=== PATIENT | female | born 1960 | race Caucasian/White ===

== ENCOUNTER 2024-01-06 07:45 | Inpatient (IN) | payer OTHER ==
[~2024-01-06] VITALS: Ht 162.6 cm; Wt 65.8 kg
[2024-01-06 08:27] LABS: BASOPHILS # (AUTO) 0.1 K/uL (0.0-0.2); BASOPHILS % (AUTO) 0.8 % (0.0-2.0); EOSINOPHILS # (AUTO) 0.2 K/uL (0.0-0.7); EOSINOPHILS % (AUTO) 2.7 % (0.0-6.0); HEMATOCRIT 28 % (33-45); HEMOGLOBIN 9.3 g/dL (11.5-14.8); LYMPHOCYTES # (AUTO) 1.1 K/uL (0.8-4.8); LYMPHOCYTES % (AUTO) 12.5 % (20.0-44.0); MEAN CORPUSCULAR HEMOGLOBIN 30 PG (26.0-33.0); MEAN CORPUSCULAR HGB CONC 33 g/dl (31.0-36.0); MEAN CORPUSCULAR VOLUME 89 fL (82-100); MONOCYTES # (AUTO) 0.7 K/uL (0.1-1.30); MONOCYTES % (AUTO) 8.1 % (2.0-12.0); NEUTROPHILS # (AUTO) 6.6 K/uL (1.8-8.9); NEUTROPHILS % (AUTO) 75.9 % (43.0-81.0); PLATELET COUNT (AUTO) 261 K/uL (150-450); RED BLOOD CELL COUNT(AUTO) 3.17 MIL/uL (4.0-5.2); RED CELL DISTRIBUTION WIDTH 15.7 % (11.5-15.0); WHITE BLOOD COUNT (AUTO) 8.6 K/uL (4.3-11.0)
[2024-01-06 08:34] LABS: CALCIUM, SERUM 10.4 mg/dL (8.5-10.1); CARBON DIOXIDE 22 mmol/L (21-32); CHLORIDE 106 mmol/L (98-107); CREATININE 4.3 mg/dL (0.6-1.3); GLUCOSE 159 mg/dL (74-106); POTASSIUM 5.2 mmol/L (3.5-5.1); SODIUM SERUM 140 mmol/L (136-145); UREA NITROGEN, BLOOD 65 mg/dL (7-18)
[2024-01-06 08:40] LABS: ALANINE AMINOTRANSFERASE 25 U/L (12-78); ALBUMIN 3.6 g/dL (3.4-5.0); ALCOHOL, BLOOD 3 mg/dL (0-10); ALKALINE PHOSPHATASE 152 U/L (46-116); ASPARTATE AMINOTRANSFERASE 13 U/L (15-37); BILIRUBIN,DIRECT 0.1 mg/dL (0.0-0.2); BILIRUBIN,TOTAL 0.3 mg/dL (0.2-1.0); TOTAL PROTEIN, SERUM 8.8 g/dL (6.4-8.2)
[2024-01-06 08:41] LABS: ACETAMINOPHEN <10 ug/ml (10-30); SALICYLATE 0.7 mg/dL (2.8-20.0)
[2024-01-06] MEDS: IV NS 0.9% 1,000 ML BAG IV ONE (09:00)
[2024-01-06] MEDS ORDERED: OLANZAPINE 5 MG TABLET ONE (09:01)
[2024-01-06] MEDS: OLANZAPINE ZYDIS 5 MG TAB.RAPDIS PO ONE (09:03)
[2024-01-06] MEDS ORDERED: OLAN5TAB3 PO (09:23)
[2024-01-06] MEDS ORDERED: HYDR-4076 PO (09:23)
[2024-01-06 10:27] LABS: APPEARANCE,URINE SLIGHTLY CLOUDY (CLEAR); BILIRUBIN,URINE NEGATIVE (NEGATIVE); BLOOD, URINE 1+ Ery/uL (NEGATIVE); COLOR,URINE YELLOW (YELLOW); KETONES,URINE NEGATIVE (NEGATIVE); LEUKOCYTE ESTERASE ,URINE TRACE (NEGATIVE); NITRITE, URINE NEGATIVE (NEGATIVE); PH,URINE 6.5 (5.0-8.0); PROTEIN,URINE 3+ mg/dl (NEGATIVE); UGLUCOSE 1+ mg/dL (NEGATIVE); UROBILINOGEN,URINE 0.2 EU/dL (0.2)
[2024-01-06 10:28] LABS: ADD URINE CULTURE YES; BACTERIA,URINE Rare /HPF (None Seen); SQUAMOUS EPITHELIAL CELL,UR Few /HPF (None Seen)
[2024-01-06 10:33] LABS: AMPHETAMINE, URINE NEGATIVE (NEGATIVE); BARBITURATE, URINE NEGATIVE (NEGATIVE); BENZODIAZEPINE, URINE NEGATIVE (NEGATIVE); CANNABINOID, URINE NEGATIVE (NEGATIVE); COCCAINE, URINE NEGATIVE (NEGATIVE); OPIATE, URINE NEGATIVE (NEGATIVE); PHENCYCLIDINE SCREEN,URINE NEGATIVE (NEGATIVE)
[2024-01-06] MEDS ORDERED: MAG HYDROX/AL HYDROX/SIMETH 30 ML UDC PO PRN (12:00)
[2024-01-06] MEDS ORDERED: IV NS 0.9% 1,000 ML IV PRN (12:00)
[2024-01-06] MEDS ORDERED: ONDANSETRON HCL/PF 4 MG/2 ML VIAL IVP PRN (12:00)
[2024-01-06] MEDS ORDERED: ACETAMINOPHEN 325 MG TABLET PO PRN (12:00)
[2024-01-06] MEDS ORDERED: Z GUARD REMEDY 4 OZ OINT TP PRN (12:00)
[2024-01-06] MEDS: SODIUM POLYSTYRENE SULFONATE 15 G/60 ML BOTTLE PO ONE (12:00)
[2024-01-06] MEDS ORDERED: MAGNESIUM HYDROXIDE 30 ML UDC PO PRN (12:00)
[2024-01-06] MEDS: OLANZAPINE 5 MG TABLET PO SCH (16:21)
[2024-01-07 08:00] VITALS: BP 220/100; TEMP 98.6; O2SAT 98
[2024-01-07] MEDS: hydrALAZINE HCL 25 MG TABLET PO SCH (08:14)
[2024-01-07] MEDS ORDERED: hydrALAZINE HCL IV 20 MG VIAL IV PRN (09:00)
[2024-01-07 20:00] VITALS: BP 201/93; TEMP 97.9; O2SAT 98
[2024-01-07] MEDS: ZOLPIDEM TARTRATE 5 MG TABLET PO PRN (23:58)
[2024-01-08] MEDS ORDERED: LORAZEPAM INJ 2 MG/ML VIAL IM STA (07:14)
[2024-01-08] MEDS: OLANZAPINE 10 MG VIAL IM STA (07:53)
[2024-01-08] MEDS ORDERED: NIFE-35 PO (09:17)
[2024-01-08] MEDS: NIFEdipine XL (30MG) 30 MG TAB PO SCH (09:30)
[2024-01-08] MEDS ORDERED: HALOPERIDOL 5 MG TABLET PO PRN (11:00)
[2024-01-08] MEDS: HALOPERIDOL LACTATE INJ 5 MG/ML VIAL IM PRN (13:14)
[2024-01-08] MEDS: OLANZAPINE 10 MG TABLET PO SCH (17:11)
[2024-01-09 11:59] VITALS: BP 123/62; TEMP 97.9; O2SAT 100
[2024-01-09 15:04] LABS: BASOPHILS % (AUTO) 0.7 % (0.0-2.0); EOSINOPHILS # (AUTO) 0.2 K/uL (0.0-0.7); EOSINOPHILS % (AUTO) 3.7 % (0.0-6.0); HEMATOCRIT 23 % (33-45); HEMOGLOBIN 7.5 g/dL (11.5-14.8); LYMPHOCYTES # (AUTO) 1.6 K/uL (0.8-4.8); LYMPHOCYTES % (AUTO) 30.4 % (20.0-44.0); MEAN CORPUSCULAR HEMOGLOBIN 30 PG (26.0-33.0); MEAN CORPUSCULAR HGB CONC 33 g/dl (31.0-36.0); MEAN CORPUSCULAR VOLUME 89 fL (82-100); MONOCYTES # (AUTO) 0.6 K/uL (0.1-1.30); MONOCYTES % (AUTO) 11.2 % (2.0-12.0); NEUTROPHILS # (AUTO) 2.8 K/uL (1.8-8.9); PLATELET COUNT (AUTO) 199 K/uL (150-450); RED BLOOD CELL COUNT(AUTO) 2.53 MIL/uL (4.0-5.2); RED CELL DISTRIBUTION WIDTH 16.1 % (11.5-15.0); WHITE BLOOD COUNT (AUTO) 5.2 K/uL (4.3-11.0)
[2024-01-09 15:43] LABS: ALBUMIN 2.7 g/dL (3.4-5.0); BILIRUBIN,TOTAL 0.2 mg/dL (0.2-1.0); CALCIUM, SERUM 8.5 mg/dL (8.5-10.1); CREATININE 5.2 mg/dL (0.6-1.3); MAGNESIUM 2.2 mg/dL (1.8-2.4); PHOSPHORUS 4.5 mg/dL (2.5-4.9); POTASSIUM 4.3 mmol/L (3.5-5.1); TOTAL PROTEIN, SERUM 7.1 g/dL (6.4-8.2)
[2024-01-09] MEDS: RISPERIDONE 1 MG TAB.RAPDIS PO SCH (17:00)
[2024-01-09 22:00] VITALS: BP 136/65; TEMP 98; O2SAT 98
[2024-01-10 06:00] VITALS: BP 141/82; TEMP 97.2; O2SAT 95
[2024-01-10 08:00] VITALS: BP 123/54; TEMP 98.1; O2SAT 100
[2024-01-10 12:58] LABS: ALBUMIN 2.8 g/dL (3.4-5.0); BILIRUBIN,TOTAL 0.2 mg/dL (0.2-1.0); CREATININE 5.2 mg/dL (0.6-1.3); MAGNESIUM 2.2 mg/dL (1.8-2.4); PHOSPHORUS 4.8 mg/dL (2.5-4.9); TOTAL PROTEIN, SERUM 7.2 g/dL (6.4-8.2)
[2024-01-10 13:35] LABS: BASOPHILS % (AUTO) 0.5 % (0.0-2.0); EOSINOPHILS # (AUTO) 0.2 K/uL (0.0-0.7); EOSINOPHILS % (AUTO) 4.6 % (0.0-6.0); HEMATOCRIT 23 % (33-45); LYMPHOCYTES % (AUTO) 36.7 % (20.0-44.0); MEAN CORPUSCULAR HEMOGLOBIN 31 PG (26.0-33.0); MEAN CORPUSCULAR HGB CONC 35 g/dl (31.0-36.0); MEAN CORPUSCULAR VOLUME 89 fL (82-100); MONOCYTES # (AUTO) 0.6 K/uL (0.1-1.30); MONOCYTES % (AUTO) 10.9 % (2.0-12.0); NEUTROPHILS # (AUTO) 2.5 K/uL (1.8-8.9); NEUTROPHILS % (AUTO) 47.3 % (43.0-81.0); PLATELET COUNT (AUTO) 200 K/uL (150-450); RED BLOOD CELL COUNT(AUTO) 2.61 MIL/uL (4.0-5.2); RED CELL DISTRIBUTION WIDTH 15.8 % (11.5-15.0); WHITE BLOOD COUNT (AUTO) 5.4 K/uL (4.3-11.0)
[2024-01-10 16:00] VITALS: BP 154/55; TEMP 98.1; O2SAT 100
[2024-01-10] MEDS ORDERED: RISPERIDONE 0.25 MG TAB.RAPDIS PO SCH (18:00)
[2024-01-10] MEDS: risperiDONE-M 0.5 MG TAB.RAPDIS PO SCH (18:30)
[2024-01-10 20:00] VITALS: BP 157/62; TEMP 98.6; O2SAT 97
[2024-01-10 22:00] VITALS: BP 157/62; TEMP 98.6; O2SAT 97
[2024-01-11 06:33] VITALS: BP 157/62; TEMP 98.6; O2SAT 97
[2024-01-11 08:00] VITALS: BP 176/79; TEMP 98.1; O2SAT 100
[2024-01-11 08:06] LABS: COMPLEMENT C3, SERUM 104 mg/dL (82-167); COMPLEMENT C4, SERUM 21 mg/dL (12-38)
[2024-01-11 10:07] LABS: *ANA ANTI-CENTROMERE B AB <0.2 AI (0.0-0.9); *ANA ANTI-DNA(DS) AB, QN <1 IU/mL (0-9); *ANA ANTI-JO-1 <0.2 AI (0.0-0.9); *ANA ANTICHROMATIN ANTIBODY <0.2 AI (0.0-0.9); *ANA RNP ANTIBODIES <0.2 AI (0.0-0.9); *ANA SJOGREN'S ANTI-SS-A <0.2 AI (0.0-0.9); *ANA SJOGREN'S ANTI-SS-B <0.2 AI (0.0-0.9); *ANAANTI-SCLERODERMA-70 AB <0.2 AI (0.0-0.9); *ANASMITH AB <0.2 AI (0.0-0.9)
[2024-01-11 14:10] LABS: HEPATITIS B SURFACE AB Non Reactive (.)
[2024-01-11 16:00] VITALS: BP 176/69; TEMP 99; O2SAT 99
[2024-01-11 20:00] VITALS: BP 158/88; TEMP 98.1; O2SAT 100
[2024-01-13] MEDS: HALOPERIDOL LACTATE INJ 5 MG/ML VIAL IM PRN (15:20)
[2024-01-14 13:36] VITALS: BP 169/75
[2024-01-14] MEDS ORDERED: hydrALAZINE HCL 25 MG TABLET PO ONE (14:00)
[2024-01-15 20:11] LABS: ANTI-MPO ANTIBODIES <0.2 units (0.0-0.9); ANTI-PR3 ANTIBODIES <0.2 units (0.0-0.9)
[2024-01-16 13:10] LABS: *ANCA ATYPICAL p-ANCA <1:20 titer (Neg:<1:20); *ANCA CYTOPLASMIC (C-ANCA) <1:20 titer (Neg:<1:20); *ANCA PERINUCLEAR (P-ANCA) <1:20 titer (Neg:<1:20)
== END 2024-01-14 14:00 | DRG 304 ==
LOC: ER 07:48 → MED 14:32
PROVIDERS: ADMIT Internal Medicine; ATTEND Internal Medicine
DX: I16.0 Hypertensive urgency (principal); N17.0 Acute kidney failure with tubular necrosis; F29 Unspecified psychosis not due to a substance or known physiological condition; N18.9 Chronic kidney disease, unspecified; I12.9 Hypertensive chronic kidney disease with stage 1 through stage 4 chronic kidney disease, or unspecified chronic kidney disease; E87.5 Hyperkalemia; Z88.6 Allergy status to analgesic agent; Z20.822 Contact with and (suspected) exposure to COVID-19; Z88.8 Allergy status to other drugs, medicaments and biological substances; Z91.158 Patient's noncompliance with renal dialysis for other reason; Z91.199 Patient's noncompliance with other medical treatment and regimen due to unspecified reason; Z79.899 Other long term (current) drug therapy; E11.22 Type 2 diabetes mellitus with diabetic chronic kidney disease; F17.200 Nicotine dependence, unspecified, uncomplicated; D64.9 Anemia, unspecified; M89.8X9 Other specified disorders of bone, unspecified site; Z89.512 Acquired absence of left leg below knee; R45.850 Homicidal ideations; G31.84 Mild cognitive impairment of uncertain or unknown etiology; E88.9 Metabolic disorder, unspecified
CPT/HCPCS: 36415; 71045-TC; 76770-TC; 80048-TC; 80053-TC; 80076-TC; 81001; 83520; 83735-TC; 84100-TC; 85025-TC; 85652-TC; 86225; 86235; 86256; 86706; 86803; 87086-TC; 87340; 98960; G0378; G0480; J1630; J3490; J7030

== ENCOUNTER → 2024-01-06 | Emergency (ER) | payer OTHER, MEDICAID ==
[~2024-01-06] MED LIST: HYDR-4076 PO; NIFE-35 PO; OLAN5TAB3 PO
== END | disposition left against medical advice (07) ==
LOC: ER 01:08
DX: F29 Unspecified psychosis not due to a substance or known physiological condition (principal); Z53.21 Procedure and treatment not carried out due to patient leaving prior to being seen by health care provider